=== PATIENT | female | born 1995 | race African-American/Black ===

== ENCOUNTER 2020-09-18 16:23 | Emergency (ER) | payer OTHER ==
[~2020-09-18] VITALS: Ht 162.6 cm; Wt 49.9 kg
[2020-09-18 16:58] VITALS: BP 112/64
[2020-09-18] MEDS ORDERED: NOHOMEMEDICATIONS (17:02)
== END 2020-09-18 18:00 | disposition home or self-care (01) ==
LOC: ER 16:23
DX: Z20.822 Contact with and (suspected) exposure to COVID-19 (principal)